=== PATIENT | male | born 1955 | race American Indian/Alaskan Native ===

== ENCOUNTER 2021-10-14 06:01 | Emergency (ER) | payer SELFPAY ==
[2021-10-14 06:20] VITALS: BP 154/80
[2021-10-14] MEDS ORDERED: ROCURONIUM 50 MG/5 ML INJ IV ONE (08:38)
== END 2021-10-14 08:00 | disposition left against medical advice (07) ==
LOC: ED 06:01
DX: S00.93XA Contusion of unspecified part of head, initial encounter (principal); Z53.21 Procedure and treatment not carried out due to patient leaving prior to being seen by health care provider; V89.2XXA Person injured in unspecified motor-vehicle accident, traffic, initial encounter; Y93.89 Activity, other specified; Y92.89 Other specified places as the place of occurrence of the external cause; Y99.8 Other external cause status
CPT/HCPCS: J3490